=== PATIENT | female | born 1980 | race Caucasian/White ===

== ENCOUNTER → 2017-08-08 12:55 | Outpatient (CLI) | payer OTHER, SELFPAY ==
[2017-08-14 16:25] LABS: AFP, Serum 50.1 ng/mL; Calc Gestational Age 21; Est Date Determined by US; Maternal Weight 157 lbs; Number of Fetuses 1; Prev Pregnancies Down Syndrome NOT GIVEN
== END ==
PROVIDERS: PCP Obstetrics & Gynecology; Visit Provider Obstetrics & Gynecology
DX: O09.529 Supervision of elderly multigravida, unspecified trimester (principal); Z34.02 Encounter for supervision of normal first pregnancy, second trimester
CPT/HCPCS: 36415; 82105

== ENCOUNTER → 2017-09-12 12:36 | Outpatient (CLI) | payer OTHER, SELFPAY ==
--- NOTE | 2017-09-12 12:37 | DI.US.S_ITS ---
PROCEDURE: US OB >= 14 WEEKS FETUS INDICATIONS: ANATOMY OUTSIDE/PRIOR DATING DATA: Last menstrual period (LMP): 04/13/17. LMP-based estimated date of delivery (BECKI): 01/18/18. First dating scan (date and location): 06/13/[address] Segundo. Estimated date of delivery (BECKI) from first dating scan: 01/15/[address] Segundo. TECHNIQUE: Real-time scanning was performed of the fetus, with image documentation and biometric measurements. Endovaginal scanning: Not needed for this study. COMPARISON: [facility], , OB >= 14 WEEKS FETUS, 07/11/2017, 14:53. FINDINGS: General: A single living intrauterine gestation is present. Presentation: N.. Placenta: Placental position is vertex, without previa. Amniotic fluid index: 14.9 cm, normal range is 5-24 cm. heart rate: 145 beats per minute. Maternal cervical canal: 3.4 cm long. Normal lower limit is 2.5 cm. biometrics: Biparietal diameter: 5.5 cm, 22 weeks 5 days Head circumference: 21.1 cm, 23 weeks 1 day Abdominal circumference: 18.3 cm, 23 weeks 1 day Femur length: 3.5 cm, 21 weeks 1 day Estimated gestational age from initial scan: 22 weeks 1 day Composite gestational age from present scan: 22 weeks 4 days Estimated weight and percentile: 498 g, 55th percentile Measurement variability for biometric dating: +/- 7 days from 14 weeks to 15 weeks 6 days gestation, +/- 10 days from 16 weeks to 21 weeks 6 days gestation, +/- 2 weeks from 22 weeks to 27 weeks 6 days gestation, +/- 3 weeks for 28 weeks gestation or later. weight reference: 4500 g or EFW >90/95% is considered macrosomia or large for gestational age. EFW <10% is small for gestational age. EFW 5% or less is considered intra-uterine growth restriction. Anatomic survey: Neuro: Ventricles are non-dilated at less than 10 mm. Cisterna magna is normal at 3-11 mm. Cerebellum is normal in size and morphology. Nuchal skin fold: Normal at less than 6 mm between 14-21 weeks gestational age. Face: Nose and lips, facial profile are normal. Spine: No evidence for spina bifida. Heart: 4-chambered heart is present, with normal ventricular outflow tracts. Diaphragm: Diaphragm is intact. Stomach: Left-sided stomach is present. Kidneys: No hydronephrosis. Normal is less than 5 mm in 2nd trimester, less than 7 mm in 3rd trimester. Cord: 3-vessel cord has orthotopic insertion. Bladder: Normal in size. Extremities: All 4 extremities identified. IMPRESSION: Normal survey of anatomy, appropriate interval growth, delivery date is projected to be centered on 01/15/18. Dictated by: Roge Johnson M.D. on 09/12/2017 at 16:13 Approved by: Roge Johnson M.D. on 09/12/2017 at 16:16
== END ==
PROVIDERS: PCP Obstetrics & Gynecology; Visit Provider Obstetrics & Gynecology
DX: Z34.02 Encounter for supervision of normal first pregnancy, second trimester (principal); Z3A.22 22 weeks gestation of pregnancy
CPT/HCPCS: 76811

== ENCOUNTER → 2017-10-10 12:34 | Outpatient (CLI) | payer OTHER, SELFPAY ==
[2017-10-10 15:47] LABS: Hematocrit 35.2 % (36-46); Hemoglobin 11.8 g/dL (12.0-16.0)
[2017-10-10 16:17] LABS: GTT (PREG) 1 Hour PP 50gm Dose 81 mg/dL (76-139)
== END ==
PROVIDERS: PCP Obstetrics & Gynecology; Visit Provider Obstetrics & Gynecology
DX: Z34.02 Encounter for supervision of normal first pregnancy, second trimester (principal)
CPT/HCPCS: 36415; 82950; 85014; 85018

== ENCOUNTER → 2017-12-18 10:50 | Outpatient (CLI) | payer OTHER, MEDICAID, SELFPAY ==
[2017-12-19 08:01] LABS: Strep Grp B PCR NEG for Grp B Strep
== END ==
PROVIDERS: PCP Obstetrics & Gynecology; Visit Provider Obstetrics & Gynecology
DX: Z34.93 Encounter for supervision of normal pregnancy, unspecified, third trimester (principal); Z3A.35 35 weeks gestation of pregnancy
CPT/HCPCS: 87653

== ENCOUNTER 2018-01-20 03:20 | Observation (INO) | payer OTHER, MEDICAID, SELFPAY ==
[2018-01-20 08:16] VITALS: BP 124/68; PULSE 73; RESP 16; TEMP 36.4
== END 2018-01-20 04:00 | disposition home or self-care (01) ==
PROVIDERS: PCP Obstetrics & Gynecology
DX: Z34.83 Encounter for supervision of other normal pregnancy, third trimester (principal); Z3A.40 40 weeks gestation of pregnancy; O69.1XX0 Labor and delivery complicated by cord around neck, with compression, not applicable or unspecified; Z37.0 Single live birth; O76 Abnormality in fetal heart rate and rhythm complicating labor and delivery
CPT/HCPCS: 59025; G0378; G0379

== ENCOUNTER 2018-01-20 13:13 | Inpatient (IN) | payer OTHER, MEDICAID, SELFPAY ==
[2018-01-20 15:10] LABS: Add Manual Diff / Slide Review NO; Basophils Percent Auto 0.3 % (0-2); Eosinophils Percent Auto 0.1 % (2-4); Hematocrit 36.4 % (36-46); Hemoglobin 12.3 g/dL (12.0-16.0); Lymphocytes Percent Auto 8.7 % (25-40); Mean Corpuscular HGB Conc 33.7 % (30-36); Mean Corpuscular Hemoglobin 26.4 PG (26-34); Mean Corpuscular Volume 78.3 fL (80-100); Neutrophils Absolute Auto 13000 /uL (3000-5900); Neutrophils Percent Auto 85.9 % (50-75); Platelet Count 322 X10^3/uL (150-400); Red Blood Cell Count 4.64 X10^6/uL (4.0-5.2); Red Cell Distribution Width 15.4 % (11.6-14.8); White Blood Cell Count 15.2 X10^3/uL (4.5-11.0)
[2018-01-20 19:50] VITALS: BP 123/63
--- NOTE | 2018-01-20 20:05 | PM.OBPRVD ---
Delivery date: 01/20/18 Intrapartal events: Intolerance (Variable and late decelerations) Induction method: none Delivery augmentation: rupture of membranes Delivery monitor: external FHT and external uterine Route of delivery: vacuum extraction Indication for instrumentation: nonreassuring FHR tracing (Deep variable decelerations and late decelerations) Episiotomy description: None Laceration description: None Estimated blood loss (mL): 150 Anesthesia type: None Complications: None Narrative: Mom complete and pushed for about an hour. Vacuum applied due to deep variable and late decelerations with each contraction. There were 2 pop offs. On the 3rd pull the vertex delivered over an intact perineum at 7:40 p.m.. Nuchal cord x2 that were loose were reduced on the perineum. The remainder of the body delivered without difficulty and was placed on mom's abdomen. The cord was double clamped and cut once it stopped pulsing. Cord bloods were obtained. The placenta delivered intact with a 3 vessel cord at 7:56 p.m.. Fundus was massaged to firm. Pitocin was given in the IV fluids before the placenta delivered. The perineum and vagina were inspected and there were no lacerations. Apgars 9 at 1 min and 9 at 5 min. Estimated blood loss 150 cc. . No analgesia. Mom and infant stable to recovery. Plan for aftercare: To routine care
--- NOTE | 2018-01-20 20:08 | P.PCNOB_ITS ---
Delivery date: 01/20/18 Intrapartal events: Intolerance (Variable and late decelerations) Induction method: none Delivery augmentation: rupture of membranes Delivery monitor: external FHT and external uterine Route of delivery: vacuum extraction Indication for instrumentation: nonreassuring FHR tracing (Deep variable decelerations and late decelerations) Episiotomy description: None Laceration description: None Estimated blood loss (mL): 150 Anesthesia type: None Complications: None Narrative: Mom complete and pushed for about an hour. Vacuum applied due to deep variable and late decelerations with each contraction. There were 2 pop offs. On the 3rd pull the vertex delivered over an intact perineum at 7:40 p.m.. Nuchal cord x2 that were loose were reduced on the perineum. The remainder of the body delivered without difficulty and was placed on mom's abdomen. The cord was double clamped and cut once it stopped pulsing. Cord bloods were obtained. The placenta delivered intact with a 3 vessel cord at 7: 56 p.m.. Fundus was massaged to firm. Pitocin was given in the IV fluids before the placenta delivered. The perineum and vagina were inspected and there were no lacerations. Apgars 9 at 1 min and 9 at 5 min. Estimated blood loss 150 cc. . No analgesia. Mom and infant stable to recovery. Plan for aftercare: To routine care
[2018-01-20 21:58] VITALS: BP 128/60
[2018-01-20 23:25] VITALS: TEMP 36.4
[2018-01-20] MEDS: IBUPROFEN 600 MG TABLET PO (23:25)
[2018-01-21 05:27] LABS: Hemoglobin 10.2 g/dL (12.0-16.0)
[2018-01-21] MEDS: LANOLIN OINT 7 GM 1 APPLIC TOP (08:41)
[2018-01-21] MEDS: IBUPROFEN 600 MG TABLET PO ×3 (08:41→21:45)
[2018-01-21] MEDS: DOCUSATE 250 MG CAPSULE PO (08:41)
[2018-01-22] MEDS: IBUPROFEN 600 MG TABLET PO ×2 (04:10→11:30)
[2018-01-22] MEDS: DOCUSATE 250 MG CAPSULE PO (09:21)
[2018-01-22 11:03] VITALS: BP 118/62; PULSE 83; RESP 16; TEMP 36.7
[2018-01-22] MEDS: MEASLES,MUMPS,RUBELLA VACC/PF 0.5 ML VIAL SUBCUT (13:15)
--- NOTE | 2018-02-01 15:01 | P.DS_ITS ---
Discharge Providers Date of admission: 01/20/18 13:13 Primary care physician: Martha Segundo MD Consults: 01/20/18 20:02 Consult to [employer] Routine Comment: Discharge provider: Martha Segundo MD Discharge Date: 01/22/18 Summary Date Patient Seen: 01/22/18 Time Patient Seen: 08:30 Hospital Course: Patient is a 37-year-old 1 para 1 at 40-,2/7 weeks gestation who presented in active labor. She had a vacuum assisted vaginal delivery secondary to deep variable decelerations during pushing. Her course was unremarkable and she was discharged home on day # 2. going well. Pain well controlled. Peripartum Data Delivery Method: Assisted Delivery Laceration description: None Episiotomy description: None Procedures: Vacuum assisted vaginal delivery complications: none 1: Gender: Female Disposition of : home Discharge Diagnosis (1) 40 weeks gestation of : Status: Acute (2) Advanced maternal age (AMA) in : Status: Acute (3) Status post vacuum-assisted vaginal delivery: Status: Acute Status at Discharge Functional status at discharge: independent ambulation Overall status at discharge: patient is progressing back to baseline Time Spent with Patient Total time spent providing and/or coordinating discharge services: Less than 30 minutes Objective Labs Result Diagrams: 01/21/18 05:11 Discharge Plan Discharge Plan Patient Disposition: Home Discharge comment: Call with fever, chills or bleeding vaginally more than a pad in an hour Discharge Med Rec/Prescriptions Prescriptions: No Action acyclovir 400 mg tablet 400 mg PO BID Qty: 60 RF: 0 Follow up/Referrals: Martha Segundo MD [Primary Care Provider] - 6 Weeks ([address] check with Dr Segundo March 06 at 12pm) Provider Discharge Instructions Diet: Diet as Tolerated Activity: No intercourse Skin/Wound/Dressing Care Report to your healthcare provider any signs of infection, such as:: chills, fever, increased pain and unusual drainage Visit Report/Discharge Packet Instructions: DI for Labor and Delivery, Vaginal Stand Alone Forms: Discharge: Care Visit Report Forms: Stroke Signs & Symptoms Discharge Data Primary Care Provider: Martha Segundo Attending Provider: Vazquez Shaffer Admit Date/Time: 01/20/18 13:13 Discharges patient from system. Discharge Date/Time: 01/22/18 13:45
== END 2018-01-22 13:45 | disposition home or self-care (01) | DRG 560 ==
PROVIDERS: PCP Obstetrics & Gynecology
DX: O69.1XX0 Labor and delivery complicated by cord around neck, with compression, not applicable or unspecified (principal); Z3A.40 40 weeks gestation of pregnancy; Z37.0 Single live birth; O76 Abnormality in fetal heart rate and rhythm complicating labor and delivery
CPT/HCPCS: 36415; 59025; 59050; 59409; 85014; 85018; 85025; 86850; 86900; 86901; G0378; G0379